=== PATIENT | male | born 1960 | race Caucasian/White ===

== ENCOUNTER → 2017-10-18 07:53 | Outpatient (CLI) | payer BC, SELFPAY ==
--- NOTE | 2017-10-18 08:40 | CA_ITS ---
PROCEDURE: 2-D M-mode and color Doppler study INDICATIONS FOR THE TEST: Chest pain+ COPD Heart Murmur Tobacco Smoking Palpitations Fatigue Syncope Edema Hypertension Diabetes Mellitus Rheumatic Fever SOB+RODRIGUEZ Obesity Hyperlipidemia Family History HD Additional History PATIENT INFORMATION HEIGHT: 70 WEIGHT:200 GENDER: Male B/P:159/88 2-D/M-MODE INTERPRETATION: 2-D MEASUREMENTS OBSERVED VALUES IN CMS Right Ventricular Dimension (RVDd) 2.0 Interventricular Septum (Thickness)(IVsd) 1.6 Left Ventricular Internal Dimensions(LVIDd) 4.9 Left Ventricular Posterior Wall (Thickness)(LVPWd) 1.0 Aortic Root 2.9 Aortic Cusp Separation 2.0 Left Atrial Dimensions (LAD) 4.2 2D 1. Left atrium is mildly enlarged, left ventricle is normal size, there is mild concentric left ventricular hypertrophy, visually estimated ejection fraction 55% with no obvious regional wall motion abnormality. 2. The right atrium and right ventricle are normal size and contractility. 3. The aortic valve is minimally thickened and fibrosed. 4. The mitral and tricuspid valve leaflets are minimally thickened. 5. The pulmonic valve is poorly visualized. 6. No significant pericardial effusion noted. DOPPLER INTERROGATION: Doppler interrogation of the aortic, mitral and tricuspid valvular presence of mild aortic, mild mitral and tricuspid regurgitation, tricuspid and jet velocity insufficient for calculation of the right ventricular systolic pressure, grade 1 diastolic dysfunction seen without tissue Doppler evidence of raised left atrial pressure. CONCLUSION: 1. Mildly left atrium, normal left ventricular size, mild concentric left ventricular hypertrophy, visually estimated ejection fraction 55% with no obvious regional wall motion abnormality, grade 1 diastolic dysfunction seen without tissue Doppler evidence of raised left atrial pressure. 2. Mild aortic, mild mitral and tricuspid regurgitation 3. No significant pericardial effusion noted.
== END ==
PROVIDERS: Family Provider Family Medicine; PCP Nurse Practitioner; Visit Provider Nurse Practitioner
DX: R07.1 Chest pain on breathing (principal); R53.83 Other fatigue
CPT/HCPCS: 93017; 93306

== ENCOUNTER → 2018-03-27 15:27 | Outpatient (POV) | payer BC, SELFPAY | PROVIDERS: Family Provider Family Medicine; PCP Nurse Practitioner; Visit Provider Dermatology | DX: Z00.00 Encounter for general adult medical examination without abnormal findings (principal) ==

== ENCOUNTER → 2021-03-10 11:51 | Outpatient (CLI) | payer BC, SELFPAY ==
--- NOTE | 2021-03-10 11:56 | XR_ITS ---
PROCEDURE: XR CHEST PORTABLE CLINICAL HISTORY: COVID OUTPATIENT COMPARISON: No exams were available for comparison FINDINGS: The cardiomediastinal silhouette and pulmonary vascularity are within normal limits. COPD changes. Patchy density is present in the right upper lobe and left lower lobe suspicious for ground-glass infiltrates seen with Covid19 pneumonia. There are mild atelectatic changes in the lung bases. Suture line is present in the right upper lobe. IMPRESSION: Patchy areas of infiltrate in the right upper and left lower lobe with atelectatic changes which may be seen with Covid19 pneumonia Dictated by: Manuelito Tirado MD 03/10/2021 12:48 Manuelito Tirado MD in [facility] 03/10/2021 12:48
== END ==
PROVIDERS: PCP Family Medicine; Visit Provider Family Medicine
DX: U07.1 COVID-19 (principal)
CPT/HCPCS: 71045

== ENCOUNTER 2021-07-31 02:11 | Emergency (ER) | payer BC, SELFPAY ==
[2021-07-31] VITALS (8 sets, daily range): BP systolic 120–145; BP diastolic 64–76; PULSE 82–101; RESP 16–21; TEMP 36.6–36.7; O2SAT 95–99; BMI 27.9
--- NOTE | 2021-07-31 02:10 | ECG_ITS ---
APPROVED REPORT Exam: Resting ECG HR:81 bpm ECG Measurements Heart Rate 81 AXES NH 153 P 57 QRSd 102 QRS 89 QT 360 T 75 QTc 398 Conclusion SINUS RHYTHM NORMAL ECG UNCONFIRMED REPORT Electronically signed by : Rickey Chappell MD 08/11/2021 21:15:38
--- NOTE | 2021-07-31 02:16 | XR_ITS ---
PROCEDURE INFORMATION: Exam: XR Chest Exam date and time: 07/31/2021 2:16 AM Age: 61 years old Clinical indication: Sternal or substernal pain; Prior surgery; Surgery date: 6+ months; Surgery type: Lung biopsy RT; Additional info: Cp TECHNIQUE: Imaging protocol: XR of the chest. Views: 2 views. COMPARISON: CR XR CHEST PORTABLE 03/10/2021 12:07 PM FINDINGS: Lungs: Left basilar opacities partially silhouette the diaphragm compatible with atelectasis. Central opacities with peribronchial cuffing, seen to advantage on the lateral chest radiograph suggest viral process versus reactive airways without convincing consolidation. Pleural spaces: Unremarkable. No pleural effusion. No pneumothorax. Heart/Mediastinum: Unremarkable. No cardiomegaly. Bones/joints: Unremarkable. IMPRESSION: 1. Left basilar opacities partially silhouette the diaphragm compatible with atelectasis. 2. Central opacities with peribronchial cuffing, seen to advantage on the lateral chest radiograph suggest viral process versus reactive airways without convincing consolidation.
[2021-07-31 02:23] LABS: Coronavirus 19, PCR Not Detected (NotDetected); Influenza A, PCR Not Detected (NotDetected); Influenza B, PCR Not Detected (NotDetected); Microscopic, Urine URINE MICROSCOPIC (MICROSCOPIC)
--- NOTE | 2021-07-31 02:23 | PC.NURSE ---
Pt gone to rad
[2021-07-31 02:27] LABS: Basophils # 0.2 K/mm3 (0-0.2); Eosinophils # 0.2 K/mm3 (0.0-0.4); Hematocrit 49.5 % (42.0-52.0); Hemoglobin 15.7 g/dL (14.1-18.0); Lymphocytes # 1.4 K/mm3 (0.7-4.5); Lymphocytes % 6.5 % (10-50); Mean Corpuscular HGB Conc 31.7 g/dL (31.8-35.4); Mean Corpuscular Hemoglobin 30.5 pg (27.0-31.2); Mean Corpuscular Volume 96.3 fl (80-94); Mean Platelet Volume 8.6 fl (7.4-10.4); Monocytes % 4.6 % (1.7-9.3); Neutrophils # 18.7 K/mm3 (1.8-7.8); Platelet Count 360 K/mm3 (142-424); Red Blood Count 5.14 M/mm3 (4.60-6.20); Red Cell Distribution Width 14.1 % (11.5-17.5); White Blood Count 21.4 K/mm3 (4.8-10.8)
--- NOTE | 2021-07-31 02:27 | PC.NURSE ---
Pt back from rad
[2021-07-31 02:30] LABS: Appearance,Urine CLEAR (Clear); Bilirubin,Urine Negative (Negative); Blood, Urine Negative (Negative); Color,Urine DK YELLOW (Yellow); Glucose,Urine (UA) Negative (Negative); Ketones,Urine TRACE (Negative); Leukocyte Esterase,Urine Negative (Negative); Nitrate,Urine Negative (Negative); Protein,Urine Negative (Negative)
[2021-07-31 02:31] LABS: MANUAL DIFFERENTIAL MANUAL DIFFERENTIAL (MANUAL DIFF)
[2021-07-31 02:35] LABS: Alanine Aminotransferase 45 U/L (12-78); Albumin Level 4.7 g/dl (3.5-5.0); Albumin/Globulin Ratio 1.7 (1.1-1.8); Alkaline Phosphatase 98 U/L (38-126); Anion Gap 10.6 mEq/L (5-15); Aspartate Amino Transferase 29 U/L (17-59); Bilirubin,Total 0.7 mg/dl (0.2-1.3); Blood Urea Nitrogen 11 mg/dl (9-20); Calcium 9.8 mg/dl (8.4-10.2); Carbon Dioxide 29 mmol/L (22.0-30.0); Chloride 102 mmol/L (98-107); Creatinine Clearance Estimated 109 mL/min (50-200); Estimated Glomerular Filt Rate 86 ml/min (>60); GFR (African American) 104 ML/MIN (>60); Globulin 2.8 g/dL (1.3-3.2); Glucose 165 mg/dl (74-100); Magnesium 1.7 mg/dl (1.6-2.3); Potassium 3.6 mmoL/L (3.5-5.1); Sodium 138 mmol/L (136-145); Total Protein,Serum 7.5 g/dl (6.3-8.2)
[2021-07-31 02:39] LABS: Bacteria,Urine Trace /lpf; C-Reactive Protein 1.8 mg/L (0-4); Lymphocytes % 11 % (10-50); Monocytes % 5 % (2-9); Mucus,Urine 1+ /lpf; Neutrophils % 84 % (42-76); Platelet Estimate Normal; RBC Morphology Normal; Total Cells Counted 100; WBC,Urine Occasional #/hpf (0-3)
[2021-07-31 02:51] LABS: Lactic Acid 1.9 mmol/L (0.7-2.1)
[2021-07-31 02:53] LABS: Procalcitonin 0.065 ng/mL (0.0-2.0)
[2021-07-31 03:02] LABS: Erythrocyte Sedimentation Rate 7 mm/hr (0-20); Troponin I < 0.01 ng/ml (0.00-0.034)
--- NOTE | 2021-07-31 03:35 | [facility].EDCP ---
ED Disposition Clinical Impression: Atypical chest pain Leukocytosis Qualifiers: Leukocytosis type: unspecified Qualified Code(s): D72.829 - Elevated white blood cell count, unspecified Disposition: Home, Self-Care Condition on Discharge: Good Instructions: DI for Atypical Chest Pain Additional Instructions: call pcp for follow up and see card Referrals: Rickey Singh MD [Primary Care Provider] - - Critical Care Critical Care Time: No Attestation: On 07/31/21, the high probability of a clinically significant, sudden or life threatening deterioration of the following system(s) required my full and direct attention, intervention and personal management. The time I documented below is in addition to time spent performing reported procedures but includes the following listed in this critical care notation. Medical Decision Making - Medical Records Medical records reviewed: Yes: I reviewed the patient's medical records. - Emile Inquiry Pt receiving controlled substance: No Vital Signs: 07/31/21 02:12 07/31/21 02:30 07/31/21 03:00 Temperature 97.8 F Temperature Source Oral Pulse Rate 94 H 85 Pulse Rate [Right] 83 Respiratory Rate 21 16 20 Blood Pressure 120/64 123/67 Blood Pressure [Right Arm] 145/75 H Blood Pressure Mean 85 79 Blood Pressure Mean [Right Arm] 98 02 Sat by Pulse Oximetry 99 97 95 Oxygen Delivery Method Room Air Room Air Room Air 07/31/21 03:30 07/31/21 04:00 07/31/21 04:30 Temperature Temperature Source Pulse Rate 99 H 101 H 87 Pulse Rate [Right] Respiratory Rate 19 17 17 Blood Pressure 136/76 134/72 136/71 Blood Pressure [Right Arm] Blood Pressure Mean 96 92 87 Blood Pressure Mean [Right Arm] 02 Sat by Pulse Oximetry 98 98 97 Oxygen Delivery Method Room Air Room Air Room Air 07/31/21 05:00 07/31/21 06:00 Temperature 98.1 F Temperature Source Oral Pulse Rate 87 82 Pulse Rate [Right] Respiratory Rate 20 Blood Pressure 144/67 H 135/74 Blood Pressure [Right Arm] Blood Pressure Mean 97 Blood Pressure Mean [Right Arm] 02 Sat by Pulse Oximetry 98 Oxygen Delivery Method Room Air Room Air - Lab Data Lab results reviewed: Yes: I reviewed the patient's lab results. Lab Results 07/31/21 02:13: ESR 7 07/31/21 02:13: Troponin I < 0.01, C-Reactive Protein 1.8, Procalcitonin 0.065 07/31/21 02:13: SARS-CoV-2 (PCR) Not detected, Influenza A Untype (PCR) Not detected, Influenza Type B (PCR) Not detected 07/31/21 02:13: Urine Color Dk yellow, Urine Appearance Clear, Urine pH 6.0, Ur Specific [place] 1.020, Urine Protein Negative, Urine Glucose (UA) Negative, Urine Ketones Trace, Urine Blood Negative, Urine Nitrate Negative, Urine Bilirubin Negative, Urine Urobilinogen 1.0, Ur Leukocyte Esterase Negative, Urine WBC Occasional, Urine Bacteria Trace, Urine Mucus 1+ 07/31/21 02:13: WBC 21.4 H*, RBC 5.14, Hgb 15.7, Hct 49.5, MCV 96.3 H, MCH 30.5, MCHC 31.7 L, RDW 14.1, Plt Count 360, MPV 8.6, Neut % (Auto) 87.0 H, Lymph % (Auto) 6.5 L, [place] % (Auto) 4.6, Eos % (Auto) 1.0, Baso % (Auto) 1.0, Neut # (Auto) 18.7 H, Lymph # (Auto) 1.4, [place] # (Auto) 1.0, Eos # (Auto) 0.2, Baso # (Auto) 0.2, Total Counted 100, Neutrophils % (Manual) 84 H, Lymphocytes % (Manual) 11, Monocytes % (Manual) 5, Platelet Estimate Normal, RBC Morphology Normal 07/31/21 02:13: Sodium 138, Potassium 3.6, Chloride 102, Carbon Dioxide 29, Anion Gap 10.6, BUN 11, Creatinine 0.90, Estimated Creat Clear 109, Estimated GFR 86, Est GFR ( Amer) 104, Glucose 165 H, Calcium 9.8, Magnesium 1.7, Total Bilirubin 0.7, AST 29, ALT 45, Alkaline Phosphatase 98, NT-Pro-B Natriuret Pep 80.0, Total Protein 7.5, Albumin 4.7, Globulin 2.8, Albumin/Globulin Ratio 1.7 07/31/21 02:13: Amylase 80, Lipase 36 07/31/21 02:36: Lactate 1.9 07/31/21 05:15: Troponin I < 0.01 Result diagrams: 07/31/21 02:13 07/31/21 02:13 Orders (Tests/Meds): ED MEDICATIONS Generic Name Dose Route Start Last Admin Trade
[2021-07-31 04:28] LABS: Amylase 80 U/L (30-110); Lipase 36 U/L (23-300)
[2021-07-31 06:14] LABS: Troponin I < 0.01 ng/ml (0.00-0.034)
== END 2021-07-31 06:36 | disposition home or self-care (01) ==
PROVIDERS: Emergency Provider Emergency Medicine; PCP Family Medicine
DX: R07.9 Chest pain, unspecified (principal); D72.829 Elevated white blood cell count, unspecified; Z79.899 Other long term (current) drug therapy; Z20.822 Contact with and (suspected) exposure to COVID-19
CPT/HCPCS: 71046; 80053; 81001; 82150; 83605; 83690; 83735; 83880; 84145; 84484; 85007; 85025; 85651; 86140; 87040; 93005; 96365; 96375; 99283; C9803; U0003; U0005